=== PATIENT | female | born 1990 | race Hispanic/Latino ===

== ENCOUNTER 2020-09-25 19:52 | Emergency (ER) | payer OTHER ==
[~2020-09-25] VITALS: Ht 152.4 cm; Wt 46.7 kg
[2020-09-25] MEDS ORDERED: ACETAMINOPHEN 500 MG TABLET PO ONE (21:15)
[2020-09-25 21:56] VITALS: BP 110/72
== END 2020-09-25 22:00 ==
LOC: EDH 19:52
DX: U07.1 COVID-19 (principal)
CPT/HCPCS: 87635; 87804 ×2; 99283; C9803